=== PATIENT | female | born 1960 | race African-American/Black ===

== ENCOUNTER 2024-07-24 10:51 | Emergency (ER) | payer OTHER ==
[~2024-07-24] VITALS: Ht 167.6 cm; Wt 78.0 kg
[2024-07-24] MEDS: HYDROCODONE/ACETAMINOPHEN 5/325MG TABLET PO ONE ×2 (11:45→16:41)
[2024-07-24] MEDS: LIDOCAINE HCL 1% 20ML VIAL INFIL ONE (14:12)
[2024-07-24] MEDS: ONDANSETRON HCL 4MG/2ML INJ IV ONE (14:14)
[2024-07-24] MEDS: SODIUM CHLORIDE 0.9% 1,000 ML IV ONE (14:15)
[2024-07-24] MEDS: FENTANYL CITRATE/PF 50MCG/ML 2ML VIAL IV ONE (14:15)
[2024-07-24] MEDS: PROPOFOL 200MG/20ML VIAL IV ONE ×2 (14:26→15:47)
[2024-07-24 14:33] VITALS: O2SAT 99
[2024-07-24] MEDS ORDERED: IBUP-2029 MT (16:12)
[2024-07-24] MEDS ORDERED: HYDR-4001 MT (16:12)
[2024-07-24] MEDS: IBUPROFEN 600MG TABLET PO ONE (16:42)
[2024-07-24 16:44] VITALS: BP 146/83; PULSE 74; RESP 13; TEMP 36.8; O2SAT 99
== END 2024-07-24 17:08 | disposition home or self-care (01) ==
LOC: ER 11:27
DX: S82.851A Displaced trimalleolar fracture of right lower leg, initial encounter for closed fracture (principal); E11.9 Type 2 diabetes mellitus without complications; Z88.6 Allergy status to analgesic agent; Z88.0 Allergy status to penicillin; Z88.8 Allergy status to other drugs, medicaments and biological substances; Z91.041 Radiographic dye allergy status; W01.0XXA Fall on same level from slipping, tripping and stumbling without subsequent striking against object, initial encounter; Y93.89 Activity, other specified; Y92.89 Other specified places as the place of occurrence of the external cause; Y99.8 Other external cause status
CPT/HCPCS: 73610; 27840; 96361; 96374; 99152; 99285; J3010; J3490; J2405; J7030; Z7610; 94070; 94664; 94760; J2704